=== PATIENT | female | born 1990 | race Caucasian/White ===

== ENCOUNTER 2018-05-23 05:51 | Inpatient (IN) | payer BC ==
[~2018-05-23] VITALS: Ht 167.6 cm; Wt 93.2 kg
[2018-05-23] VITALS (61 sets, daily range): BP systolic 83–139; BP diastolic 48–83; PULSE 70–137; TEMP 97.3–98.2
[2018-05-23] MEDS ORDERED: PRENATAL PO (07:29)
[2018-05-23 08:52] LABS: BASO # 0.1 (0.0-0.2); BASO % 0.5 % (0.0-2.0); EOS # 0.1 (0.0-0.7); EOS % 1.1 % (0-4.0); GRAN # 6.6 (1.4-6.5); GRAN % 60.4 % (42.2-75.2); HEMOGLOBIN 11.4 g/dl (12.5-16.0); LYMPH # 3.3 (1.2-3.4); LYMPH % 29.8 % (20.0-51.0); MEAN CELL VOLUME 81 fl (80.0-100.0); MEAN CORPUSCULAR HEMOGLOBIN 26 pg (27.0-31.0); MEAN CORPUSCULAR HGB CONC 32 g/dl (33.0-37.0); MEAN PLATELET VOLUME 12.2 fl (7.4-10.4); MONO # 0.8 (0.1-0.6); MONO % 6.9 % (1.7-9.3); PLATELET COUNT 195 K/mm3 (130-400); RED BLOOD COUNT 4.35 M/mm3 (4.10-5.30)
[2018-05-23 08:56] LABS: HEMATOCRIT 35.3 % (37.0-47.0)
[2018-05-24 03:08] VITALS: BP 114/59; PULSE 74; TEMP 98.7
[2018-05-24 06:43] VITALS: BP 106/67; PULSE 72; TEMP 98.8
[2018-05-24 07:19] LABS: HEMOGLOBIN 10.9 g/dl (12.5-16.0); MEAN CELL VOLUME 80 fl (80.0-100.0); MEAN CORPUSCULAR HEMOGLOBIN 27 pg (27.0-31.0); MEAN CORPUSCULAR HGB CONC 33 g/dl (33.0-37.0); MEAN PLATELET VOLUME 11.6 fl (7.4-10.4); PLATELET COUNT 192 K/mm3 (130-400); RED BLOOD COUNT 4.12 M/mm3 (4.10-5.30); REDCELL DISTRIBUTION WIDTH-CV 13.9 % (11.5-14.5)
[2018-05-24 07:20] LABS: HEMATOCRIT 32.9 % (37.0-47.0)
[2018-05-24 10:19] LABS: BAND 27 % (0-10); BASOPHIL 1 % (0-2); LYMPHOCYTE 13 % (20.0-51.0); METAMYELOCYTE 1 % (0-0); NEUTROPHILS 57 % (42.0-75.2); PLATELET ESTIMATE NORMAL (NORMAL)
[2018-05-24 13:30] VITALS: BP 112/60; PULSE 75; TEMP 97.8
[2018-05-24 16:46] VITALS: BP 111/75; PULSE 62; TEMP 98.3
[2018-05-24 20:50] VITALS: BP 105/61; PULSE 66; TEMP 98.3
[2018-05-25 08:00] VITALS: BP 113/59; PULSE 71; TEMP 97.6
[2018-05-25] MEDS ORDERED: IBU800 M1 PO (08:02)
== END 2018-05-25 12:10 | disposition home or self-care (01) | DRG 774 ==
LOC: LDR 05:51 → OB 07:09 → LDR 07:09 → OB 05-24 00:10
PROVIDERS: Student in an Organized Health Care Education/Training Program
PROC: 10E0XZZ Delivery of Products of Conception, External Approach (ICD-10-PCS; principal; 2018-05-23)
PROC: 10907ZC Drainage of Amniotic Fluid, Therapeutic from Products of Conception, Via Natural or Artificial Opening (ICD-10-PCS; 2018-05-23)
DX: O48.0 Post-term pregnancy (principal); O72.1 Other immediate postpartum hemorrhage; O99.214 Obesity complicating childbirth; Z3A.41 41 weeks gestation of pregnancy; Z37.0 Single live birth; Z22.330 Carrier of Group B streptococcus
CPT/HCPCS: J0595; J2210; J2405; J2540; J2590; J7120